=== PATIENT | male | born 1935 | race Caucasian/White ===

== ENCOUNTER 2022-05-30 15:52 | Outpatient (CLI) | payer MEDICARE, OTHER | END 2022-05-30 15:53 | disposition home or self-care (01) | LOC: CSHWCC 15:52 | PROVIDERS: ATTEND Preventive Medicine Undersea and Hyperbaric Medicine | DX: T81.89XD Other complications of procedures, not elsewhere classified, subsequent encounter (principal) | CPT/HCPCS: 11042; 97139; 97605; G0277; G0463; 36416; 99203 ==

== ENCOUNTER 2022-05-31 08:19 | Outpatient (CLI) | payer MEDICARE, OTHER | END 2022-05-31 08:20 | disposition home or self-care (01) | LOC: CSHWCC 08:19 | PROVIDERS: ATTEND Preventive Medicine Undersea and Hyperbaric Medicine | DX: T81.89XD Other complications of procedures, not elsewhere classified, subsequent encounter (principal); M72.6 Necrotizing fasciitis | CPT/HCPCS: 97139; G0277 ==

== ENCOUNTER 2022-06-01 08:21 | Outpatient (CLI) | payer MEDICARE, OTHER | END 2022-06-01 08:22 | disposition home or self-care (01) | LOC: CSHWCC 08:21 | PROVIDERS: ATTEND Preventive Medicine Undersea and Hyperbaric Medicine | DX: T81.89XD Other complications of procedures, not elsewhere classified, subsequent encounter (principal) | CPT/HCPCS: G0277 ==

== ENCOUNTER 2022-06-02 12:51 | Outpatient (CLI) | payer MEDICARE, OTHER | END 2022-06-02 12:52 | disposition home or self-care (01) | LOC: CSHWCC 12:51 | PROVIDERS: ATTEND Preventive Medicine Undersea and Hyperbaric Medicine | DX: T81.89XD Other complications of procedures, not elsewhere classified, subsequent encounter (principal) | CPT/HCPCS: 97139; 97605; G0277 ==

== ENCOUNTER 2022-06-03 08:03 | Outpatient (CLI) | payer MEDICARE, OTHER | END 2022-06-03 08:04 | disposition home or self-care (01) | LOC: CSHWCC 08:03 | PROVIDERS: ATTEND Preventive Medicine Undersea and Hyperbaric Medicine | DX: T81.89XD Other complications of procedures, not elsewhere classified, subsequent encounter (principal); M72.6 Necrotizing fasciitis | CPT/HCPCS: 97139; G0277 ==

== ENCOUNTER 2022-06-07 08:28 | Outpatient (CLI) | payer MEDICARE, OTHER | END 2022-06-07 08:29 | disposition home or self-care (01) | LOC: CSHWCC 08:28 | PROVIDERS: ATTEND Preventive Medicine Undersea and Hyperbaric Medicine | DX: T81.89XD Other complications of procedures, not elsewhere classified, subsequent encounter (principal); M72.6 Necrotizing fasciitis | CPT/HCPCS: 97139; G0277 ==

== ENCOUNTER 2022-06-08 08:33 | Outpatient (CLI) | payer MEDICARE, OTHER | END 2022-06-08 08:34 | disposition home or self-care (01) | LOC: CSHWCC 08:33 | PROVIDERS: ATTEND Preventive Medicine Undersea and Hyperbaric Medicine | DX: T81.89XD Other complications of procedures, not elsewhere classified, subsequent encounter (principal); M72.6 Necrotizing fasciitis | CPT/HCPCS: 97139; G0277 ==

== ENCOUNTER 2022-06-10 08:11 | Outpatient (CLI) | payer MEDICARE, OTHER | END 2022-06-10 08:12 | disposition home or self-care (01) | LOC: CSHWCC 08:11 | PROVIDERS: ATTEND Preventive Medicine Undersea and Hyperbaric Medicine | DX: T81.89XD Other complications of procedures, not elsewhere classified, subsequent encounter (principal); M72.6 Necrotizing fasciitis | CPT/HCPCS: 97139; G0277 ==

== ENCOUNTER 2022-06-13 13:09 | Outpatient (CLI) | payer MEDICARE, OTHER | END 2022-06-13 13:10 | disposition home or self-care (01) | LOC: CSHWCC 13:09 | PROVIDERS: ATTEND Preventive Medicine Undersea and Hyperbaric Medicine | DX: T81.89XA Other complications of procedures, not elsewhere classified, initial encounter (principal); M70.21 Olecranon bursitis, right elbow | CPT/HCPCS: 97139; 97605; G0277; G0463; 99211 ==

== ENCOUNTER 2022-06-14 08:11 | Outpatient (CLI) | payer MEDICARE, OTHER | END 2022-06-14 08:12 | disposition home or self-care (01) | LOC: CSHWCC 08:11 | PROVIDERS: ATTEND Preventive Medicine Undersea and Hyperbaric Medicine | DX: M72.6 Necrotizing fasciitis (principal); T81.89XD Other complications of procedures, not elsewhere classified, subsequent encounter | CPT/HCPCS: 97139; G0277 ==

== ENCOUNTER 2022-06-15 08:14 | Outpatient (CLI) | payer MEDICARE, OTHER | END 2022-06-15 08:15 | disposition home or self-care (01) | LOC: CSHWCC 08:14 | PROVIDERS: ATTEND Preventive Medicine Undersea and Hyperbaric Medicine | DX: T81.89XD Other complications of procedures, not elsewhere classified, subsequent encounter (principal) ==

== ENCOUNTER 2022-06-16 09:53 | Outpatient (CLI) | payer MEDICARE, OTHER | END 2022-06-16 09:54 | disposition home or self-care (01) | LOC: CSHWCC 09:53 | PROVIDERS: ATTEND Preventive Medicine Undersea and Hyperbaric Medicine | DX: T81.89XD Other complications of procedures, not elsewhere classified, subsequent encounter (principal) | CPT/HCPCS: 97605 ==

== ENCOUNTER 2022-06-20 08:10 | Outpatient (CLI) | payer MEDICARE, OTHER | END 2022-06-20 08:11 | disposition home or self-care (01) | LOC: CSHWCC 08:10 | PROVIDERS: ATTEND Preventive Medicine Undersea and Hyperbaric Medicine | DX: T81.89XA Other complications of procedures, not elsewhere classified, initial encounter (principal) | CPT/HCPCS: 97139; 97605; G0277; G0463; 99212 ==

== ENCOUNTER 2022-06-21 08:25 | Outpatient (CLI) | payer MEDICARE, OTHER | END 2022-06-21 08:26 | disposition home or self-care (01) | LOC: CSHWCC 08:25 | PROVIDERS: ATTEND Preventive Medicine Undersea and Hyperbaric Medicine | DX: T81.89XD Other complications of procedures, not elsewhere classified, subsequent encounter (principal) | CPT/HCPCS: 97139; G0277 ==

== ENCOUNTER 2022-06-23 09:53 | Outpatient (CLI) | payer MEDICARE, OTHER | END 2022-06-23 09:54 | disposition home or self-care (01) | LOC: CSHWCC 09:53 | PROVIDERS: ATTEND Preventive Medicine Undersea and Hyperbaric Medicine | DX: T81.89XD Other complications of procedures, not elsewhere classified, subsequent encounter (principal) ==

== ENCOUNTER 2022-06-27 12:56 | Outpatient (CLI) | payer MEDICARE, OTHER | END 2022-06-27 12:57 | disposition home or self-care (01) | LOC: CSHWCC 12:56 | PROVIDERS: ATTEND Nurse Practitioner Family | DX: T81.89XD Other complications of procedures, not elsewhere classified, subsequent encounter (principal); M72.6 Necrotizing fasciitis | CPT/HCPCS: 97605 ==

== ENCOUNTER 2022-06-30 13:20 | Outpatient (CLI) | payer MEDICARE, OTHER | END 2022-06-30 13:21 | disposition home or self-care (01) | LOC: CSHWCC 13:20 | PROVIDERS: ATTEND Nurse Practitioner Family | DX: T81.89XD Other complications of procedures, not elsewhere classified, subsequent encounter (principal); M72.6 Necrotizing fasciitis ==

== ENCOUNTER 2022-07-01 11:38 | Outpatient (CLI) | payer MEDICARE, OTHER | END 2022-07-01 11:39 | disposition home or self-care (01) | LOC: CSHWCC 11:38 | PROVIDERS: ATTEND Family Medicine | DX: T81.89XD Other complications of procedures, not elsewhere classified, subsequent encounter (principal); M72.6 Necrotizing fasciitis | CPT/HCPCS: 97605; 99212; G0463 ==

== ENCOUNTER 2022-07-04 08:08 | Outpatient (CLI) | payer MEDICARE, OTHER | END 2022-07-04 08:09 | disposition home or self-care (01) | LOC: CSHWCC 08:08 | PROVIDERS: ATTEND Family Medicine | DX: T81.89XD Other complications of procedures, not elsewhere classified, subsequent encounter (principal) | CPT/HCPCS: 97139; 97605; G0463; 99212 ==

== ENCOUNTER 2022-07-07 11:08 | Outpatient (CLI) | payer MEDICARE, OTHER | END 2022-07-07 11:09 | disposition home or self-care (01) | LOC: CSHWCC 11:08 | PROVIDERS: ATTEND Nurse Practitioner Family | DX: T81.89XD Other complications of procedures, not elsewhere classified, subsequent encounter (principal) | CPT/HCPCS: 97139; G0463; 99212 ==

== ENCOUNTER 2022-07-08 07:17 | Outpatient (CLI) | payer MEDICARE, OTHER | END 2022-07-08 07:18 | disposition home or self-care (01) | LOC: CSHULT 07:17 | PROVIDERS: ATTEND Preventive Medicine Undersea and Hyperbaric Medicine | DX: M79.89 Other specified soft tissue disorders (principal); T81.89XA Other complications of procedures, not elsewhere classified, initial encounter ==

== ENCOUNTER 2022-07-22 08:08 | Outpatient (CLI) | payer MEDICARE, OTHER | END 2022-07-22 08:09 | disposition home or self-care (01) | LOC: CSHWCC 08:08 | PROVIDERS: ATTEND Nurse Practitioner Family | DX: T81.89XD Other complications of procedures, not elsewhere classified, subsequent encounter (principal) | CPT/HCPCS: 97139; G0463; 99212 ==

== ENCOUNTER 2022-08-05 10:19 | Outpatient (CLI) | payer MEDICARE, OTHER | END 2022-08-05 10:20 | disposition home or self-care (01) | LOC: CSHWCC 10:19 | PROVIDERS: ATTEND Nurse Practitioner Family | DX: T81.89XD Other complications of procedures, not elsewhere classified, subsequent encounter (principal) ==

== ENCOUNTER 2022-08-24 09:42 | Outpatient (CLI) | payer MEDICARE, OTHER | END 2022-08-24 09:43 | disposition home or self-care (01) | LOC: CSHWCC 09:42 | PROVIDERS: ATTEND Nurse Practitioner Family | DX: T81.89XD Other complications of procedures, not elsewhere classified, subsequent encounter (principal) | CPT/HCPCS: 99212; G0463 ==